=== PATIENT | female | born 1970 | race Caucasian/White ===

== ENCOUNTER 2024-08-03 20:21 | Emergency (ER) | payer MEDICAID, OTHER ==
[~2024-08-03] VITALS: Ht 165.1 cm; Wt 92.8 kg
[2024-08-03] MEDS ORDERED: PSEUDOEPHEDRINE HCL 30 MG TAB PO ONE (20:45)
[2024-08-03] MEDS ORDERED: ACETAMINOPHEN 325 MG TAB PO ONE (20:45)
--- NOTE | 2024-08-03 21:23 | ED.PDOC ---
Back pain HPI HPI Comments C/C of fall injury s/p fall x6 days ago. Pt states friend was playing around, picked up pt, then dropped pt on left hip. Pt has been taking Ibuprofen for pain with no relief. No deformity, pt able to ambulate with slow, steady gait. Pt unable to bear full weight on left leg. +CSM. VSS. NKDA. Chief Complaint: Fall Injury Time Seen by MD: 20:25 Reviewed Notes: Nurses Notes, Medications, Allergies Allergies: Coded Allergies: NO KNOWN ALLERGIES (Unverified , 08/03/24) Home Meds Active Scripts Methocarbamol (Methocarbamol) 750 Mg Tab, 750 MG PO HS PRN for 7 Days, #7 TAB Prov:SHUN MO COMMODITIES MANAGER 08/03/24 Methylprednisolone (Medrol Dosepak) 4 Mg Andre, 4 MG PO UD for 6 Days, #21 TAB UAD Prov:SHUN MO [facility] 08/03/24 Information Source: Patient Mode of Arrival: Ambulatory Family History Family History: Reviewed,noncontributory to illness, No family hx of Cancer, No family hx of DM, No family hx of Heart melissa, No family hx of HTN, No family hx ofKidney melissa, No family hx of Liver melissa, No family hx of Lung melissa, No family hx of Stroke Social History Smoker: Non-Smoker Alcohol: Denies ETOH Use Drugs: Denies Drug Use Constitutional: denies: chills, diaphoresis, fatigue, fever, malaise, sweats, weakness, others EENTM: denies: blurred vision, double vision, ear bleeding, ear discharge, ear drainage, ear pain, ear ringing, eye pain, eye redness, hearing loss, mouth pain, mouth swelling, nasal discharge, nose bleeding, nose congestion, nose pain, photophobia, tearing, throat pain, throat swelling, voice changes, others Respiratory: denies: cough, hemoptysis, orthopnea, SOB at rest, shortness of breath, SOB with excertion, stridor, wheezing, others Cardiovascular: denies: chest pain, dizzy spells, diaphoresis, Dyspnea on exertion, edema, irregular heart beat, left arm pain, lightheadedness, palpitations, PND, syncope, others Gastrointestinal: denies: abdomen distended, abdominal pain, blood streaked bowels, constipated, diarrhea, dysphagia, difficulty swallowing, hematemesis, melena, nausea, poor appetite, poor fluid intake, rectal bleeding, rectal pain, vomiting, others Genitourinary: denies: abnormal vagina bleeding, burning, dyspareunia, dysuria, flank pain, frequency, hematuria, incontinence, pain, , vagina discharge, urgency, others Neurological: denies: dizziness, fainting, headache, left sided numbness, left sided weakness, numbness, paresthesia, pre-existing deficit, right sided numbness, right sided weakness, seizure, speech problems, tingling, tremors, weakness, others Musculoskeletal: reports: others; denies: back pain, gout, joint pain, joint swelling, muscle pain, muscle stiffness, neck pain Integumetry: reports: others (left hip pain); denies: bruises, change in color, change in hair/nails, dryness, laceration, lesions, lumps, rash, wounds Allergic/Immunocompromised: denies: Difficulty Healing, Frequent Infections, Hives, Itching, others Hematologic/Lymphatic: denies: anemia, blood clots, easy bleeding, easy bruising, swollen glands, others Endocrine: denies: excessive hunger, excessive sweating, excessive thirst, excessive urination, flushing, intolerance to cold, intolerance to heat, unexplained weight gain, unexplained weight loss, others Psychiatric: denies: anxiety, bipolar disorder, depression, hopeless, panic disorder, schizophrenia, sleepless, suicidal, others Physical Exam General Appearance: No Apparent Distress, Normal HEENT: Pharynx Normal Neck: Full Range of Motion, Non-Tender Respiratory: Chest Non-Tender, Lungs Clear, No Respiratory Distress, Normal Breath Sounds Cardiovascular: No Edema, No JVD, No Murmur, No Gallop, Normal Peripheral Pulses, Regular Rate/Rhythm Breast Exam: Deferred Gastrointestinal: No Organomegaly, Non Tender, No Pulsatile Mass, Normal Bowel Sounds, Soft Genitalia: Deferred Pelvic: Deferred Rectal: Deferred Extremities: Normal capillary refill, Normal inspection, Normal range of motion, Non-tender, No pedal edema Musculoskeletal : Apperance: Normal 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 Was a procedure done?: No Back Pain Differential Dx Differential Diagnosis: Fracture, Musculoskeletal Pain, Strain X-Ray, Labs, Meds, VS Vital Signs Date Time Temp Pulse Resp B/P (MAP) Pulse Ox O2 Delivery O2 Flow Rate FiO2 08/03/24 21:39 98.4 94 19 145/66 (92) 94 98.4 08/03/24 21:39 94 19 94 Room Air 08/03/24 20:42 98.3 110 16 122/77 (92) 95 98.3 Current Medications Medications (Trade) Dose Ordered Sig/Hannah Route Start Time Stop Time Status Last Admin Ketorolac Tromethamine (Toradol Injection) 60 mg ONCE ONCE IM 08/03/24 21:30 08/03/24 21:31 DC 08/03/24 21:39 Acetaminophen/ Hydrocodone Bitart ([place] 5/325MG Tab) 1 tab ONCE ONCE PO 08/03/24 21:30 08/03/24 21:31 DC 08/03/24 21:39 Methylprednisolone Sodium Succinate (Solu Medrol) 125 mg ONCE ONCE IM 08/03/24 23:00 08/03/24 23:01 DC 08/03/24 23:35 X-Ray, Labs, Meds, VS Comment FOLLOW UP WITH YOUR PRIMARY CARE DOCTOR DISCUSSED RECOMMEND MRI OF LUMBAR SPINE PELVIS AND HIPS. RETURN TO THE ER FOR INCREASING PAIN, NUMBNESS, WEAKNESS, LOSS OF BOWEL OR BLADDER CONTROL, SADDLE ANESTHESIA, OR ANY CONCERNING SYMPTOMS. Time of 1ST Reevaluation: 21:22 Reevaluation 1ST: Unchanged Time of 2ND Reevaluation: 23:24 Reevaluation 2ND: Improved Patient Education/Counseling: Diagnosis, Treatment, Prognosis, Need For Follow Up Family Education/Counseling: No Family Present Departure 1 Departure Time of Disposition: 23:21 Impression: Primary Impression: Lumbar radiculopathy Disposition: 01 HOME / SELF CARE / HOMELESS Condition: Stable Written Prescriptions FOLLOW UP WITH YOUR PRIMARY CARE DOCTOR DISCUSSED RECOMMEND MRI OF LUMBAR SPINE PELVIS AND HIPS. RETURN TO THE ER FOR INCREASING PAIN, NUMBNESS, WEAKNESS, LOSS OF BOWEL OR BLADDER CONTROL, SADDLE ANESTHESIA, OR ANY CONCERNING SYMPTOMS. e-Prescriptions Methocarbamol (Methocarbamol) 750 Mg Tab 750 MG PO HS PRN for 7 Days, #7 TAB Prov: SHUN MO COMMODITIES MANAGER 08/03/24 Methylprednisolone (Medrol Dosepak) 4 Mg Andre 4 MG PO UD for 6 Days, #21 TAB UAD Prov: SHUN MO 08/03/24 Discharged With: Self Critical Care Note Critical Care Time?: No Stability Stability form required: SHUN Peng Aug 03, 2024 21:23
--- NOTE | 2024-08-03 21:38 | DVH ---
XY L HIP COMPLETE XRAY, August 03, 2024 INDICATION: left hip pain TECHNICAL DATA: Frontal and frog lateral views were obtained of the left hip.] COMPARISON: None FINDINGS: there is enthesopathy involving the greater trochanters bilaterally, ischial tuberosities bilaterally , superior anterior iliac spines bilaterally, but no specific abnormality is appreciated involving th e left hip IMPRESSION: 1. Generalized enthesopathy left hip appears to be grossly unremarkable I would recommend follow-up M RI examination. .
[2024-08-03 21:39] VITALS: BP 145/66; PULSE 94; RESP 19; TEMP 98.4; O2SAT 94
[2024-08-03] MEDS: KETOROLAC TROMETH 60MG/2ML VIAL IM ONE (21:39)
[2024-08-03] MEDS: HYDROcodone-ACET 5/325MG TAB PO ONE (21:39)
--- NOTE | 2024-08-03 21:39 | DVH ---
CHEST RADIOGRAPH Indication: sob Technique: Single frontal view of the chest was obtained Comparison: None FINDINGS: there is very mild pulmonary vascular congestion which is probably due to patient's body habitus hear t size is normal trachea is midline. IMPRESSION: 1. Very mild pulmonary vascular prominence probably related to patient's body habitus
--- NOTE | 2024-08-03 22:50 | DVH ---
CT LS SPINE WO CONTRAST Date: 08/03/2024 10:01 PM History: left side radiculopathy Comparison: None TECHNIQUE: Multiple axial CT images of the lumbosacral spine were obtained using bone algorithm. Axial and coron al reformatting was done. Bone and soft tissue windows were reviewed. Radiation Dose Information: CT Dose: CTDI volume is 37.17 mGy. Dose-length product is 1345.48 mGy*cm FINDINGS: No CT evidence of definite acute fracture, spinal dislocation, or significant appearing acute subluxa tion is seen. The visualized paraspinal soft tissues are grossly unremarkable. T12-L1 There is no evidence of central spinal canal or neuroforaminal stenosis. L1-L2 There is no evidence of central spinal canal or neuroforaminal stenosis. L2-L3 hypertrophic arthritic changes of the posterior facets and hypertrophy of the ligamentum flavum with a trefoil configuration of the thecal sac at this level L3-L4 Hypertrophy of the posterior facets and ligamentum flavum bilaterally with diffuse annular bul ging of the disc and compression of the thecal sac into a trefoil configuration. There is mild to mo derate spinal stenosis at this level with the thecal sac compressed to a 6-7 mm front to back dimensi on L4-L5 Hypertrophy of the posterior facets and ligamentum flavum bilaterally with diffuse annular bul ging of the disc and compression of the thecal sac into a trefoil configuration. There is mild to mo derate spinal stenosis at this level with the thecal sac compressed to a 6-7 mm front to back dimensi on L5-S1 There is no evidence of central spinal canal or neuroforaminal stenosis. IMPRESSION: 1. No definite CT evidence of acute fracture or dislocation of the bony lumbar spine. 2. Hypertrophy of the posterior facets and ligamentum flavum at L2-3, L3-4, L4-5. Mild to moderate sp inal stenosis is noted at L3-4 and L4-5. 3. All CT scans at this medical facility are performed using dose modulation techniques as appropriate to a performed exam including the following: Automated exposure control was utilized; adjustment of t he MA and/or KV according to patient size; and use of iterative reconstruction technique.
[2024-08-03] MEDS ORDERED: METH4PAK PO (23:23)
[2024-08-03] MEDS ORDERED: METH-1182 PO (23:23)
[2024-08-03] MEDS: methylPREDNISolone SOD SUCC 125 MG/2 ML VL IM ONE (23:35)
== END 2024-08-03 23:45 | disposition home or self-care (01) ==
LOC: ER 20:21
DX: M54.16 Radiculopathy, lumbar region (principal)
CPT/HCPCS: 71045; 72131; 73502; 96372; 99285; J1885; J2919